=== PATIENT | female | born 1950 | race African-American/Black ===

== ENCOUNTER 2024-11-30 09:21 | Emergency (ER) | payer MEDICARE ==
[2024-11-30 10:05] LABS: #Basophils 0.04 10x3/uL (0.0-0.2); #Eosinophils 0.25 10x3/uL (0.0-0.5); #Monocytes 0.65 10x3/uL (0.0-1.1); #Neutrophils 5.57 10x3/uL (1.5-8.4); %Basophils 0.4 % (0.0-2.0); %Eosinophils 2.6 % (0.0-6.0); %Lymphocytes 32.0 % (18.0-47.0); %Monocytes 6.7 % (0.0-10.0); %Neutrophils 57.8 % (40.0-75.0); Hematocrit 43.5 % (34.9-44.5); Hemoglobin 14.0 g/dL (12.0-15.5); Mean Corpuscular Hemoglobin 26.6 pg (27.0-33.0); Mean Corpuscular Volume 82.7 fL (81.6-98.3); Platelet Count 316 10x3/uL (150-450); Red Blood Cell (RBC) Count 5.26 10x6/uL (3.90-5.03); White Blood Cell (WBC) Count 9.65 10x3/uL (3.5-10.5)
[2024-11-30] MEDS ORDERED: Gabapentin 100 MG CAP PO SCH (10:15)
[2024-11-30 10:21] LABS: ALT (SGPT) 17 U/L (Less than 34); AST (SGOT) 20 U/L (11-34); Albumin 3.7 g/dL (3.1-4.5); Alkaline Phosphatase 89 U/L (40-110); Anion Gap 15 mmol/L (10-20); BUN (Urea Nitrogen) 25 mg/dL (9.8-20.1); Bilirubin, Total 0.3 mg/dL (0.3-1.2); CK (CPK) 83 U/L (29-168); Calc. Creatinine Clearance 0 mL/min (70-130); Calcium 10.0 mg/dL (7.8-10.44); Carbon Dioxide 24 mmol/L (23-31); Chloride 108 mmol/L (98-107); Globulin 3.4 g/dL (2.4-3.5); Glucose 105 mg/dL (83-110); Magnesium 1.9 mg/dL (1.6-2.6); Potassium 4.4 mmol/L (3.5-5.1); Sodium 143 mmol/L (136-145)
[2024-11-30 10:27] LABS: Troponin I Less than 0.010 ng/mL (< 0.028)
== END 2024-11-30 10:57 | disposition home or self-care (01) ==
LOC: CSHERS 09:21
DX: R07.9 Chest pain, unspecified (principal); E11.42 Type 2 diabetes mellitus with diabetic polyneuropathy; I10 Essential (primary) hypertension; F17.210 Nicotine dependence, cigarettes, uncomplicated
CPT/HCPCS: 71045; 80053; 82550; 83735; 84484; 85025; 93005; J2270; 96374